=== PATIENT | female | born 1980 | race American Indian/Alaskan Native ===

== ENCOUNTER 2016-09-01 23:46 | Inpatient (IN) | payer MEDICARE, MEDICAID ==
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
[2016-09-01 23:54] VITALS: BMI 52.6
[2016-09-01 23:58] VITALS: O2SAT 100
[2016-09-02] MEDS ORDERED: Alum-Mag Hydrox-Simethicone Susp (30 mL) PO ONE (02:25)
[2016-09-02 08:41] LABS: CHOLESTEROL 138 mg/dL (130-200); GLUCOSE,FASTING 87 mg/dL (65-110)
[2016-09-02] MEDS ORDERED: Albuterol-Ipratrop 3 mg / 0.5 (3 ml) UD IH PRN ×2 (09:11→10:39)
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
[2016-09-02 09:51] LABS: ADD MANUAL DIFF? NO
[2016-09-02 10:07] LABS: BLOOD UREA NITROGEN 16 mg/dL (7-21); CALCIUM 9.3 mg/dL (8.4-10.5); CARBON DIOXIDE 25 mmol/L (21-33); CHLORIDE 104 mmol/L (98-107); GFR AFRICAN-AMERICAN > 60; GLUCOSE,RANDOM 84 mg/dL (70-110); POTASSIUM 4.8 mmol/L (3.6-5.0); SODIUM 139 mmol/L (132-148)
[2016-09-02 10:08] LABS: BASO # 0.01 K/mm3 (0.0-2.0); BASO % 0.2 % (0.0-3.0); EOS # 0.3 (0.0-0.7); GRAN # 2.36 (1.4-6.5); GRAN % 41.7 % (50.0-68.0); HEMATOCRIT 30.9 % (36.0-48.0); LYMPH # 2.4 (1.2-3.4); LYMPH % 42.5 % (22.0-35.0); MEAN CORPUSCULAR HEMOGLOBIN 26.9 pg (25.0-35.0); MEAN PLATELET VOLUME 8.9 fl (7.0-11.0); MONO # 0.6 (0.1-0.6); MONO % 10.6 % (1.0-6.0); PLATELET COUNT 348 10^3/uL (120.0-450.0); RED CELL DISTRIBUTION WIDTH 15.9 % (11.5-14.5); WHITE BLOOD COUNT 5.7 10^3/ul (4.5-11.0)
[2016-09-02] MEDS ORDERED: POLYETHYLENE GLYCOL 3350 17 GM/Dose PACKET PO PRN (10:29)
[2016-09-02 13:09] LABS: PH,URINE 5.5 (4.7-8.0); URINE BILIRUBIN NEGATIVE (NEGATIVE); URINE BLOOD TRACE-INTACT (NEGATIVE); URINE GLUCOSE (UA) NEGATIVE (NEGATIVE); URINE KETONE NEGATIVE (NEGATIVE); URINE LEUKOCYTE ESTERASE NEGATIVE Leu/uL (NEGATIVE); URINE PROTEIN NEGATIVE mg/dL (<30 mg/dL); URINE UROBILINOGEN 0.2 E.U./dL (<1 E.U./dL)
[2016-09-02 13:10] LABS: URINE APPEARANCE CLEAR (CLEAR); URINE COLOR YELLOW (YELLOW)
[2016-09-02 13:18] LABS: URINE BACTERIA TRACE (NEG); URINE EPITHELIAL CELLS 0 - 2 /hpf (0-5); URINE RBC 0 - 2 /hpf (0-2); URINE WBC NEGATIVE /hpf (0-6)
[2016-09-02] MEDS: guaiFENesin 200 mg/10 ml Syrup UD PO PRN ×2 (14:02→20:31)
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
[2016-09-02] MEDS: Hydrocortisone 0.5% Cream(30 gm) TOP SCH (17:24)
[2016-09-02] MEDS: Clotrimazole 1% Vaginal Cream(45 gm) VG SCH (23:29)
[2016-09-03] MEDS: Pantoprazole 40 mg EC Tab PO SCH (06:27)
[2016-09-03] MEDS: Hydrocortisone 0.5% Cream(30 gm) TOP SCH ×2 (09:04→18:34)
[2016-09-03] MEDS: guaiFENesin 200 mg/10 ml Syrup UD PO PRN ×2 (09:13→17:37)
--- NOTE | 2016-09-03 15:45 | PCM.PYCHPN ---
Psychiatric Progress Note - Psychiatric Progress Note Patient seen today, length of contact: 30 minutes Patient Chief Complaint: "I M not well, I was hearing voices through denied can erase my medication"?" Problems Identified/Issues Discussed: Suicide/ homicide prevention, past psychiatric h/o, current psychiatric symptoms , medical problems, risk/benefits and alternatives of medications, medications compliance, coping strategies, substance abuse h/o, relapse prevention, importance of follow up with psychiatrist and therapist, discharge plan. Medical Problems: patient was seen by medical team, please see medical team notes for more detailed information asthma, HTN, gastritis, iron deficiency anemia Diagnostic Results: 09/02/16 09:12 09/02/16 09:12 Lab Results 09/02/16 12:46: Urine Color Yellow, Urine Appearance Clear, Urine pH 5.5, Ur Specific [place] 1.025, Urine Protein Negative, Urine Glucose (UA) Negative, Urine Ketones Negative, Urine Blood Trace-intact H, Urine Nitrate Negative, Urine Bilirubin Negative, Urine Urobilinogen 0.2, Ur Leukocyte Esterase Negative , Urine RBC 0 - 2, Urine WBC Negative, Ur Epithelial Cells 0 - 2, Urine Bacteria Trace 09/02/16 09:12: Sodium 139, Potassium 4.8, Chloride 104, Carbon Dioxide 25, Anion Gap 15, BUN 16, Creatinine 0.7, Est GFR ( Amer) > 60, Est GFR (Non- Af Amer) > 60, Random Glucose 84, Calcium 9.3 09/02/16 09:12: WBC 5.7, RBC 3.68, Hgb 9.9 L, Hct 30.9 L, MCV 84.0, MCH 26.9, MCHC 32.0, RDW 15.9 H, Plt Count 348, MPV 8.9, Gran % 41.7 L, Lymph % (Auto) 42.5 H, [place] % (Auto) 10.6 H, Eos % (Auto) 5.0, Baso % (Auto) 0.2, Gran # 2.36, Lymph # 2.4, [place] # 0.6, Eos # 0.3, Baso # 0.01 09/02/16 07:00: Fasting Glucose 87, Triglycerides 149, Cholesterol 138, LDL Cholesterol Direct 53, HDL Cholesterol 33 Vital Signs Temp Pulse Resp BP Pulse Ox 09/03/16 09:05 125/82 09/03/16 07:16 97.5 F L 73 20 125/84 09/02/16 16:16 80 123/75 09/02/16 09:32 119/85 09/01/16 23:58 97.5 F L 85 16 148/93 H 100 DSM 5 Symptoms Update: shortly patient is 35 years old -[place] female, long history of mental illness, most likely schizophrenia spectrum disorder, multiple admissions to the psychiatric inpatient unit including this facility in May 2016, patient lso is chronic PCP user, history of antisocial behavior, patient refused to leave psychiatric inpatient unit last admission saying that she has homicidal thoughts. Patient was transferred from [facility] for evaluation of and stabilization of depressive symptoms, psychotic symptoms, possible suicidal ideation, with a plan to overdose on medication. Pt was seen and examined in her room. fair ADLs, acceptable hygiene. patient said that "I'm not feeling well, didn't sleep last night, I was hearing voices, Krista resuming medication?" Patient self isolative, not participating in treatment milieu, patient concentrate on food more and staying in bed all day long. Patient denied thoughts of killing herself or others, denied intent or plan. Patient was compliant with medications, no side effects observed or reported, as per nursing staff patient does not have any behavioral outbursts, no aggression no agitation. Patient tolerates medication well, no side effects observed or reported, aims 0 , no EPS. Impression: DSM 5 Diagnosis: schizoaffective disorder r/o schizophrenia r/o substance induced psychosis stimulant use disorder Medication Change: Yes (Risperdal increase at the nighttime) Medical Record Reviewed: Yes Consults ordered or reviewed: medical consult appreciated, please see notes for more detailed information Mental Status Examination - Cognitive Function Orientation: Person, Place, Situation Memory: Intact Attention: Poor Concentration: Poor Association: Loose Fund of Knowledge: WNL - Mood Mood: Depressed, Anxious - Affect Affect: Flat (irritable) - Formal Thought Process Formal Thought Process: Hallucinations, Delusions, Paranoia - Suicidal Ideation Suicidal Ideation: No - Homicidal Ideation Homicidal Ideation: No Goal/Treatment Plan - Goal/Treatment Plan Need for Continued Stay: Remain at risks for inpatient hospitalization, Severe depression anxiety, Discharge may exacerbated symptoms, Severe functional impairment Progress Toward Problem(s) and Goals/Treatment Plan: milieu, structure, supportive therapy Risperdal and it will be increased 1 mg at the morning time in 2 mg at the nighttime. Psychotic symptoms and mood stabilization Patient was on invega but it is nonformulary in the hospital Cogentin will be discontinued Trazodone was restarted 50 mg at the nighttime Medical consultation appreciated Social work evaluation We'll monitor closely. Estimated Date of D/C: 09/10/16 (we'll monitor closely)
[2016-09-03] MEDS: Clotrimazole 1% Vaginal Cream(45 gm) VG SCH (21:34)
[2016-09-04 07:35] VITALS: TEMP 97.9
[2016-09-04] MEDS: Hydrocortisone 0.5% Cream(30 gm) TOP SCH ×2 (08:56→16:57)
[2016-09-04] MEDS: Pantoprazole 40 mg EC Tab PO SCH (08:58)
[2016-09-04] MEDS: guaiFENesin 200 mg/10 ml Syrup UD PO PRN ×2 (10:58→16:37)
--- NOTE | 2016-09-04 15:17 | PCM.PYCHPN ---
Psychiatric Progress Note - Psychiatric Progress Note Patient seen today, length of contact: 30 minutes Patient Chief Complaint: "I'm not feeling well, didn't sleep last night, I was hearing voices, and I was seeing people coming to my room, you know I need to go to the extermination inspector facility , can you prescribe Ativan for me?", Problems Identified/Issues Discussed: Suicide/ homicide prevention, past psychiatric h/o, current psychiatric symptoms , medical problems, risk/benefits and alternatives of medications, medications compliance, coping strategies, substance abuse h/o, relapse prevention, importance of follow up with psychiatrist and therapist, discharge plan. Medical Problems: patient was seen by medical team, please see medical team notes for more detailed information asthma, HTN, gastritis, iron deficiency anemia Diagnostic Results: 09/02/16 09:12 09/02/16 09:12 Lab Results 09/02/16 12:46: Urine Color Yellow, Urine Appearance Clear, Urine pH 5.5, Ur Specific [place] 1.025, Urine Protein Negative, Urine Glucose (UA) Negative, Urine Ketones Negative, Urine Blood Trace-intact H, Urine Nitrate Negative, Urine Bilirubin Negative, Urine Urobilinogen 0.2, Ur Leukocyte Esterase Negative , Urine RBC 0 - 2, Urine WBC Negative, Ur Epithelial Cells 0 - 2, Urine Bacteria Trace 09/02/16 09:12: Sodium 139, Potassium 4.8, Chloride 104, Carbon Dioxide 25, Anion Gap 15, BUN 16, Creatinine 0.7, Est GFR ( Amer) > 60, Est GFR (Non- Af Amer) > 60, Random Glucose 84, Calcium 9.3 09/02/16 09:12: WBC 5.7, RBC 3.68, Hgb 9.9 L, Hct 30.9 L, MCV 84.0, MCH 26.9, MCHC 32.0, RDW 15.9 H, Plt Count 348, MPV 8.9, Gran % 41.7 L, Lymph % (Auto) 42.5 H, [place] % (Auto) 10.6 H, Eos % (Auto) 5.0, Baso % (Auto) 0.2, Gran # 2.36, Lymph # 2.4, [place] # 0.6, Eos # 0.3, Baso # 0.01 09/02/16 07:00: Fasting Glucose 87, Triglycerides 149, Cholesterol 138, LDL Cholesterol Direct 53, HDL Cholesterol 33 Vital Signs Temp Pulse Resp BP Pulse Ox 09/03/16 09:05 125/82 09/03/16 07:16 97.5 F L 73 20 125/84 09/02/16 16:16 80 123/75 09/02/16 09:32 119/85 09/01/16 23:58 97.5 F L 85 16 148/93 H 100 Temp Pulse Resp BP Pulse Ox 97.9 F 80 20 116/78 100 09/04/16 07:34 09/04/16 07:34 09/04/16 07:34 09/04/16 08:57 09/01/16 23:58 DSM 5 Symptoms Update: shortly patient is 35 years old -[place] female, long history of mental illness, most likely schizophrenia spectrum disorder, multiple admissions to the psychiatric inpatient unit including this facility in May 2016, patient lso is chronic PCP user, history of antisocial behavior, patient refused to leave psychiatric inpatient unit last admission saying that she has homicidal thoughts. Patient was transferred from [facility] for evaluation of and stabilization of depressive symptoms, psychotic symptoms, possible suicidal ideation, with a plan to overdose on medication. Pt was seen and examined at the dinning area. patient said that "I'm not feeling well, didn't sleep last night, I was hearing voices, and I was seeing people coming to my room, you know I need to go to the extermination inspector facility, can you prescribe Ativan for me?", pt is circumstantial, tangential. pt said that she has irritability and "PMS symptoms, I feel very angry, I don't know why",. pt was educated about Prozac, willing to take it. Patient self isolative, not participating in treatment milieu, patient concentrate on food more and staying in bed all day long. Patient denied thoughts of killing herself or others, denied intent or plan. Patient was compliant with medications, no side effects observed or reported, as per nursing staff patient does not have any behavioral outbursts, no aggression no agitation. Patient tolerates medication well, no side effects observed or reported, aims 0 , no EPS. Impression: DSM 5 Diagnosis: schizoaffective disorder r/o schizophrenia r/o substance induced psychosis stimulant use disorder Medication Change: Yes (Risperdal increased, prozac started, vistaril prn) Medical Record Reviewed: Yes Consults ordered or reviewed: medical consult appreciated, please see notes for more detailed information Mental Status Examination - Cognitive Function Orientation: Person, Place, Situation Memory: Intact Attention: Poor Concentration: Poor Association: Loose Fund of Knowledge: WNL - Mood Mood: Depressed, Anxious - Affect Affect: Flat (irritable) - Formal Thought Process Formal Thought Process: Hallucinations, Delusions, Paranoia - Suicidal Ideation Suicidal Ideation: No - Homicidal Ideation Homicidal Ideation: No Goal/Treatment Plan - Goal/Treatment Plan Need for Continued Stay: Remain at risks for inpatient hospitalization, Severe depression anxiety, Discharge may exacerbated symptoms, Severe functional impairment Progress Toward Problem(s) and Goals/Treatment Plan: milieu, structure, supportive therapy Risperdal and it will be increased 2 mg at the morning time in 2 mg at the nighttime. Psychotic symptoms and mood stabilization Trazodone was restarted 50 mg at the nighttime Prozac 20 mg daily for PMS and depressive symptoms anxiety Vistaril 50 mg every 8 hours as needed for anxiety Medical consultation appreciated Social work evaluation We'll monitor closely. Estimated Date of D/C: 09/10/16 (we'll monitor closely)
[2016-09-04 16:48] VITALS: BP 131/74; PULSE 73; RESP 18
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
== END 2016-09-04 22:00 | disposition left against medical advice (07) | DRG 885 ==
LOC: ED 23:46 → ERH 23:55 → PSYC 09-02 00:42
PROVIDERS: ADMIT Psychiatry & Neurology Psychiatry; ATTEND Psychiatry & Neurology Psychiatry
PROC: GZ3ZZZZ Medication Management (ICD-10-PCS; principal; 2016-09-02)
DX: F25.9 Schizoaffective disorder, unspecified (principal); F32.9 Major depressive disorder, single episode, unspecified; F16.90 Hallucinogen use, unspecified, uncomplicated; I10 Essential (primary) hypertension; D50.9 Iron deficiency anemia, unspecified; J45.909 Unspecified asthma, uncomplicated; K29.70 Gastritis, unspecified, without bleeding; E66.9 Obesity, unspecified; N89.8 Other specified noninflammatory disorders of vagina; R30.0 Dysuria; R21 Rash and other nonspecific skin eruption; F17.210 Nicotine dependence, cigarettes, uncomplicated